=== PATIENT | male | born 1970 | race Hispanic/Latino ===

== ENCOUNTER → 2017-10-24 | Day surgery (SDC) | payer OTHER ==
[~2017-10-24] MED LIST: FENTANYL CITRATE/PF 100MCG/2 ML INJ ONE; HYOSCYAMINE SULFATE 0.5 MG/ML AMP ONE; LIDOCAINE HCL 2% LOCAL INJ 5 ML SDV VIAL INJ ONE; MIDAZOLAM HCL 2 MG/2 ML VIAL ONE; PROPOFOL IV EMULSION 10 MG/ML 50 ML VIAL ONE
--- NOTE | 2017-10-24 13:10 | Operative Report ---
DATE OF PROCEDURE: October 24, 2017 PROCEDURE PERFORMED: Colonoscopy and polypectomy INDICATIONS FOR COLONOSCOPY: History of diverticulitis. MEDICATION: Patient was done under MAC. Please see anesthesiologist's note. PROCEDURE: With patient in left lateral decubitus position, flexible fiberoptic Olympus colonoscope was inserted into the rectum with ease and advanced all the way to the cecum. It was then withdrawn slowly. Mucosa overlying the cecum, ascending colon and transverse colon appeared to be within normal limits. One polyp was hot biopsied from the descending colon. Diverticular disease was noted to involve the sigmoid colon. Focal diverticulitis was noted in the sigmoid colon. There was a focal nodularity noted in the rectum that was biopsied. The scope was then retroflexed into the distal rectum and small internal hemorrhoids were noted, none of which was actively bleeding. The scope was then straightened out. Scope was subsequently withdrawn. Patient tolerated the procedure well. IMPRESSION: 1. Descending colon polyp, hot biopsied. 2. Diverticulosis. 3. Focal diverticulitis, sigmoid colon. 4. Focal nodularity, rectum, biopsied. 5. Internal hemorrhoids, none actively bleeding. PLAN: Follow up histology. Initiate Flagyl 500 mg on p.o. q.6 hours x 2 weeks and Levaquin 500 mg 1 mg 1 p.o. daily times 2 weeks. Patient will need a followup colonoscopy in 3 to 5 years. Job#: [id number]
== END | disposition home or self-care (01) ==
LOC: OR 07:09
PROVIDERS: ATTEND Internal Medicine Gastroenterology
DX: K57.32 Diverticulitis of large intestine without perforation or abscess without bleeding (principal); K63.5 Polyp of colon; K62.89 Other specified diseases of anus and rectum; K64.8 Other hemorrhoids; R00.1 Bradycardia, unspecified; Z01.810 Encounter for preprocedural cardiovascular examination
CPT/HCPCS: 45380; 45384; 93005; J1980; J2001; J2250

== ENCOUNTER → 2018-11-09 | Day surgery (SDC) | payer OTHER ==
[2018-11-08 14:34] LABS: BASOPHILS % 0.4 % (0.0-1.0); EOSINOPHILS # (AUTO) 0.1 (0.0-0.4); EOSINOPHILS % 2.5 % (0.0-6.0); HEMOGLOBIN 15.3 g/dL (14.0-18.0); LYMPHOCYTES # (AUTO) 2.4 (1.0-3.2); LYMPHOCYTES % 50.2 % (18.0-39.1); MEAN CORPUSCULAR HEMOGLOBIN 30.9 pg (28-32); MEAN CORPUSCULAR VOLUME 90.9 fL (81-99); MONOCYTES # (AUTO) 0.4 (0.2-0.8); MONOCYTES % 8.5 % (4.4-11.3); NEUTROPHILS # (AUTO) 1.8 (2.1-6.9); NEUTROPHILS % 38.2 % (38.7-80.0); PLATELET COUNT 204 x10e3/uL (140-360); RED BLOOD COUNT 4.95 x10e6/uL (4.3-5.7); RED CELL DISTRIBUTION WIDTH 12.9 % (11.7-14.4)
[2018-11-08 14:52] LABS: ALANINE AMINOTRANSFERASE 23 IU/L (0-55); ALBUMIN 3.9 g/dL (3.5-5.0); ALKALINE PHOSPHATASE 82 IU/L (40-150); ANION GAP 12.1 mmol/L (8-16); BLOOD UREA NITROGEN 9 mg/dL (7-26); BUN/CREATININE RATIO 10 (6-25); CALCIUM 8.5 mg/dL (8.4-10.2); CARBON DIOXIDE 28 mmol/L (22-29); CHLORIDE 103 mmol/L (98-107); CREATININE, SERUM 0.87 mg/dL (0.72-1.25); EST GLOMERULAR FILTRATION RATE > 60 ML/MIN (60-); GLUCOSE 95 mg/dL (74-118); POTASSIUM 4.1 mmol/L (3.5-5.1); SODIUM 139 mmol/L (136-145)
[2018-11-09] VITALS (15 sets, daily range): BP systolic 119–140; BP diastolic 81–98
[~2018-11-09] VITALS: Ht 172.7 cm; Wt 88.5 kg
[~2018-11-09] MED LIST changes: +ALPRAZOLAM 0.5 MG TAB ONE; +DIPHENHYDRAMINE HCL 25 MG CAP ONE; +HEPARIN SOD/SOD CHLORIDE 2,000 ML ONE; -HYOSCYAMINE SULFATE 0.5 MG/ML AMP ONE; +IOPAMIDOL 370 MG/ML 200 ML INFUS..BTL INJ ONE; +LIDOCAINE HCL 2% LOCAL 20 ML VIAL ONE; -LIDOCAINE HCL 2% LOCAL INJ 5 ML SDV VIAL INJ ONE; -PROPOFOL IV EMULSION 10 MG/ML 50 ML VIAL ONE; +SODIUM CHLORIDE 0.9% 1000ML 1,000 ML ONE; +VERAPAMIL HCL 2.5 MG/ML 2 ML VIAL ONE
--- NOTE | 2018-11-09 09:00 | NUR ---
0900AM Recieved pt in RM #20 Identiferx2 ,Understand ambulates with Yola at Bedside for [facility] Dr Chadwick Denies active CP or SOB Iv started #20x1 left arm 1000ns at bedside Ox4. Positive allens test PPx4 DP/Pt palpable. Premedicated Benadryl and Xanax po Monitor SB w/o ectopics. Instructed to call for help side railsup and bed in low position. ds/rn
--- NOTE | 2018-11-09 12:59 | NUR ---
Received patient status post left heart catheterization to ACU bay 18. Received report from Albert Guardado RN. Reviewed medications given, orders, and procedural events. IV to left forearm with normal saline 0.9% infusing at 100ml/hr via dial flow. Patient drowsy but arousable to verbal stimuli. TR band to right wrist appears to be without signs or symptoms of active bleeding at this tiime. Palpable right radial pulse. Pulse ox to second digit of right hand. Respirations even and unlabored on room air. Patient appears to be in no signs of acute distress at this time. Stretcher in low and locked position with side rails elevatedx2. Call light within reach.
--- NOTE | 2018-11-09 13:44 | NUR ---
Notified Yola Jordan patient in recovery. Yola stated she will be arriving to hospital in approximately 30 minutes.
--- NOTE | 2018-11-09 16:00 | NUR ---
Removed 2ml of air from right wrist TR band. Right wrist site appears to be without signs or symptoms of active bleeding at this time. palpable right radial pulse. Patient tolerated well.
--- NOTE | 2018-11-09 16:05 | NUR ---
TR band removed from right wrist and dressing applied per unit protocol. Dressing to right wrist is clean,dry, and intact. Palpable right radial pulse. Patient tolerated well. No distress noted at this time. Yola at bedside.
--- NOTE | 2018-11-09 16:15 | NUR ---
Patient state he has pain in his chest when he takes deep breath. Dr. Chadwick stated for patient to take tylenol prn as prescribed. Yola spoke with Dr. Chadwick via phone regarding left heart catheterization procedure.
--- NOTE | 2018-11-09 16:45 | NUR ---
IV to left forearm removed by Elvira Eduardo RN. Dressing applied per unit protocol. Patient awake,alert, and orientedx3. Respirations even and unlabored on room air. Per Elvira Eduardo Rn Dressing to left forearm and right wrist clean,dry, and intact. 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 Patient discharged via wheelchair from unit. Patient discharged with belongings. No distress noted at time of discharge.
--- NOTE | 2018-11-09 16:52 | Operative Report ---
DATE OF PROCEDURE: 11/09/2018 SURGEON: Gage Chadwick MD INDICATION: Coronary artery disease, abnormal stress test. PROCEDURES PERFORMED: 1. Left heart catheterization, selective coronary angiography, left ventriculography. 2. Deployment of right wrist TR band. COMPLICATIONS: None. RECOMMENDATIONS: Ranolazine for endothelial dysfunction. DESCRIPTION OF PROCEDURE: Access obtained in the right radial artery using ultrasound guidance. A 5-[place] sheath was placed. Diagnostic coronary angiogram revealed no angiographic coronary artery disease. However, diffuse slow flow was noted, STEVO-2 in all coronary vessels consistent with endothelial dysfunction. LV ejection fraction 70%. LV end-diastolic pressure of 10. No gradient across the aortic valve pullback. Guide and sheath removed. TR band applied. The patient discharged home same day. Gage Chadwick MD [facility] /[id number]
== END | disposition home or self-care (01) ==
LOC: CATH LAB 08:30
PROVIDERS: ATTEND Internal Medicine Interventional Cardiology
DX: I25.10 Atherosclerotic heart disease of native coronary artery without angina pectoris (principal); R94.39 Abnormal result of other cardiovascular function study; E78.01 Familial hypercholesterolemia; E66.3 Overweight; Z01.812 Encounter for preprocedural laboratory examination; Z68.29 Body mass index [BMI] 29.0-29.9, adult
CPT/HCPCS: 36415; 80053; 85025; 93458; C1769 ×2; C1887; J2001; J2250; J7030; Q9967

== ENCOUNTER → 2019-02-14 | Day surgery (SDC) | payer OTHER ==
[~2019-02-14] MED LIST changes: -ALPRAZOLAM 0.5 MG TAB ONE; -DIPHENHYDRAMINE HCL 25 MG CAP ONE; +GLUCAGON FOR INJ 1 MG VIAL ONE; -HEPARIN SOD/SOD CHLORIDE 2,000 ML ONE; +HYOSCYAMINE 0.125 MG TAB ONE; -IOPAMIDOL 370 MG/ML 200 ML INFUS..BTL INJ ONE; -LIDOCAINE HCL 2% LOCAL 20 ML VIAL ONE; +PROPOFOL IV EMULSION 10 MG/ML 50 ML VIAL ONE; -SODIUM CHLORIDE 0.9% 1000ML 1,000 ML ONE; -VERAPAMIL HCL 2.5 MG/ML 2 ML VIAL ONE
[2019-02-14 09:15] VITALS: BP 150/98
--- NOTE | 2019-02-14 11:01 | Operative Report ---
DATE OF PROCEDURE: 02/14/2019 SURGEON: Serjio Chavez MD PROCEDURE: Colonoscopy with polypectomy. INDICATION FOR PROCEDURE: Recurrent diverticulitis, history of colon polyp. MEDICATIONS: The patient was done under MAC, please see anesthesiologist's note. PROCEDURE IN DETAIL: With the patient in left lateral decubitus position, flexible fiberoptic Olympus colonoscope was inserted into the rectum with ease and advanced all the way to the cecum. It was then withdrawn slowly. Mucosa overlying the cecum, ascending colon, transverse colon, descending colon appeared to be within normal limits. Diverticular disease was noted in the distal descending and the sigmoid colon. The mucosa overlying the sigmoid colon revealed some diffuse erythema and low-grade to moderate edema and biopsies were obtained. One polyp was hot biopsied from the sigmoid colon. There was a focal diverticulitis noted in the sigmoid colon. One polyp was hot biopsied from the rectum. The scope was then retroflexed into the distal rectum and small internal hemorrhoids were noted, none of which was actively bleeding. The scope was then straightened out, it was subsequently withdrawn. The patient tolerated the procedure well. IMPRESSION: 1. Diverticulosis. 2. Sigmoid colon polyp, hot biopsied. 3. Focal diverticulitis, sigmoid colon. 4. Low-grade sigmoiditis. 5. Rectal polyp, hot biopsied. 6. Internal hemorrhoids, none actively bleeding. PLAN: Follow up histology. We will give another course of antibiotics. Add VSL#3 one p.o. daily. The patient might benefit from a followup colonoscopy in 3 to 5 years. Serjio Chavez MD [facility] [place]/ELISE /[id number]
== END | disposition home or self-care (01) ==
LOC: OR 06:14
PROVIDERS: ATTEND Internal Medicine Gastroenterology
DX: K57.32 Diverticulitis of large intestine without perforation or abscess without bleeding (principal); K63.5 Polyp of colon; K62.1 Rectal polyp; K52.9 Noninfective gastroenteritis and colitis, unspecified; K64.8 Other hemorrhoids; Z01.810 Encounter for preprocedural cardiovascular examination
CPT/HCPCS: 45380; 45384; 93005; J1610; J2250; J2704; 45378; J3010

== ENCOUNTER → 2024-05-21 | Day surgery (SDC) | payer OTHER ==
[~2024-05-21] MED LIST changes: -GLUCAGON FOR INJ 1 MG VIAL ONE; -HYOSCYAMINE 0.125 MG TAB ONE; +LIDOCAINE HCL 2% LOCAL INJ 5 ML SDV VIAL INJ ONE; -MIDAZOLAM HCL 2 MG/2 ML VIAL ONE; +PROPOFOL IV EMULSION 10 MG/ML 20 ML VIAL ONE; +PROPOFOL IV EMULSION 10 MG/ML 50 ML VIAL IV ONE; -PROPOFOL IV EMULSION 10 MG/ML 50 ML VIAL ONE
[2024-05-21] MEDS: LACTATED RINGER'S 1,000 ML ONE (11:45)
[2024-05-21 13:10] VITALS: BP 117/76; PULSE 75; RESP 16; TEMP 97; O2SAT 99
== END | disposition home or self-care (01) ==
LOC: OR 11:15
PROVIDERS: ATTEND Internal Medicine Gastroenterology
DX: K29.50 Unspecified chronic gastritis without bleeding (principal); B96.81 Helicobacter pylori [H. pylori] as the cause of diseases classified elsewhere; K20.90 Esophagitis, unspecified without bleeding; K21.9 Gastro-esophageal reflux disease without esophagitis; K59.09 Other constipation; Z71.3 Dietary counseling and surveillance; Z87.19 Personal history of other diseases of the digestive system; I10 Essential (primary) hypertension; Z71.89 Other specified counseling; E11.9 Type 2 diabetes mellitus without complications; Z01.810 Encounter for preprocedural cardiovascular examination; Z68.29 Body mass index [BMI] 29.0-29.9, adult
CPT/HCPCS: 43239; 93005; J2001; J2470; J2704 ×2; J3010; J7121